=== PATIENT | male | born 1935 | race Caucasian/White ===

== ENCOUNTER 2016-06-05 22:36 | Emergency (ER) | payer MEDICARE, BC ==
[2016-06-05 22:47] VITALS: BP 187/86
--- NOTE | 2016-06-05 22:48 | EDM.PDOC ---
ED HPI ENT - General Chief Complaint: ENT Problem Stated Complaint: TOOTH PAIN Time Seen by Provider: 06/05/16 22:47 - History of Present Illness INITIAL COMMENTS - FREE TEXT/NARRATIVE: 80-year-old male presents emergency room with dental pain. This started this morning. Right upper rear tooth, has a filling in here done a couple years ago. The patient is scheduled to see his dentist tomorrow the patient tried Tylenol 2 extra strength around noon today. He is continuing to have pain. He denies fevers or chills or facial swelling. He is not having any swallowing difficulties. He's not aware of any drainage. - Related Data Allergies/ADRs: Allergies Allergy/AdvReac Type Severity Reaction Status Date / Time No Known Allergies Allergy Verified 06/05/16 22:48 ED ROS ENT - Review of Systems Review Of Systems: See Below Constitutional: Reports: no symptoms HEENT: Reports: Dental pain. Denies: Ear pain, Rhinitis, Sinus problem Respiratory: Reports: No Symptoms Cardiovascular: Reports: No symptoms GI/Abdominal: Reports: No symptoms Neurological: Reports: No Symptoms ED EXAM, ENT - Physical Exam Exam: See Below Exam Limited By: No limitations General Appearance: alert, no apparent distress Ears: normal external exam, normal canal, hearing grossly normal, normal TMs Nose: normal inspection, normal mucousa, no blood Mouth/Throat: Normal inspection, Normal lips, Normal oropharynx, Normal teeth, Other (It is right upper rear most tooth he has some developing erythema in the gumline with some subtle swelling. Nothing to drain at this point) Neck: normal inspection, supple, non-tender, full range of motion. No: lymphadenopathy (L), lymphadenopathy (R) Respiratory/Chest: lungs clear, normal breath sounds, no accessory muscle use Cardiovascular: regular rate, rhythm, no edema, no murmur Course - Vital Signs Last Recorded V/S: Last Vital Signs Temp 36.2 C 06/05/16 22:42 Pulse 75 06/05/16 22:42 Resp 20 06/05/16 22:42 BP 187/86 H 06/05/16 22:42 Pulse Ox 98 06/05/16 22:42 - Orders/Labs/Meds Meds: Medications Discontinued Medications Generic Name Dose Route Start Last Admin Trade Name Freq PRN Reason Stop Dose Admin Hydrocodone Bitart/Acetaminophen 1 tab 06/05/16 22:58 06/05/16 23:03 Irvona 325-5 Mg PO 06/05/16 22:59 1 tab ONETIME ONE Administration - Re-Assessments/Exams Free Text/Narrative Re-Assessment/Exam: 06/05/16 23:35 The patient was given a Irvona while back and he's doing a little better at this time, his blood pressure has come down. The patient would like to go home and try and get some rest. We'll discharge him on Irvona one or 2 every 6 hours #20 from the machine in the waiting room. Departure - Departure Time of Disposition: 23:36 Disposition: Home, Self-Care 01 Clinical Impression: Pain, dental Additional Instructions: Return to the emergency room with any questions or problems. Followup with your dentist as scheduled tomorrow. Use the Irvona one or 2 every 6 hours as needed for pain. Allow 12 hours after using this medication before driving or operating potentially hazardous equipment. If using this medication on a regular basis start a stool softener to prevent constipation. Keep track of your Tylenol intake. Try and limit it to 3000 mg in a 24-hour period each of the pain pills contained 325 mg.
[2016-06-05] MEDS ORDERED: Acetaminophen/HYDROcodone 325-5 MG Tab PO ONE (22:58)
== END 2016-06-05 23:48 | disposition home or self-care (01) ==
LOC: JD.ED 22:36
DX: K08.89 Other specified disorders of teeth and supporting structures (principal)
CPT/HCPCS: 99282; A9270; 99283

== ENCOUNTER 2018-05-04 07:59 | Day surgery (SDC) | payer MEDICARE, BC ==
--- NOTE | 2018-05-01 11:42 | PCM.PREANE ---
<Tyra Gutierrez - Last Filed: 05/01/18 11:40> Preanesthetic Assessment - Anesthesia/Transfusion/Family Hx Anesthesia History: Prior Anesthesia Without Reaction Family History of Anesthesia Reaction: No Transfusion History: No Prior Transfusion(s) Intubation History: Unknown - Review of Systems Pulmonary: Cough Cardiovascular: No Symptoms (History of HTN/Benign prostatic hypertrophy) Other: Reports: Diabetes (pre-diabetic), Sinus Problem (sinusitis) - Physical Assessment NPO Status Date: 05/03/18 Height: 1.78 m ASA Class: 2 Mental Status: Alert & Oriented x3 - Lab Values: Labs reviewed and noted and within acceptable ranges to proceed with scheduled procedure. - Imaging/EKG Impressions: EKG: (2016) SR rate=66 - Allergies Allergies/Adverse Reactions: Allergies Allergy/AdvReac Type Severity Reaction Status Date / Time Dairy Products Allergy Other Verified 05/01/18 14:19 Milk Containing Products Allergy Other Verified 05/01/18 14:19 - Anesthesia Plan Pre-Op Medication Ordered: None - Acknowledgements Anesthesia Type Planned: MAC Pt an Appropriate Candidate for the Planned Anesthesia: Yes Alternatives and Risks of Anesthesia Discussed w Pt/Guardian: Yes Pt/Guardian Understands and Agrees with Anesthesia Plan: Yes PreAnesthesia Questionnaire Gastrointestinal History: Reports: Colon Polyp - Past Surgical History HEENT Surgical History: Reports: Naso-Sinus Surgery, Polypectomy - CURRENT (IN HOUSE) MEDS Current Meds: Current Medications Lactated Ringer's (Ringers, Lactated) 1,000 mls @ 125 mls/hr IV ASDIRECTED MARSHA Stop: 05/04/18 23:00 Last Admin: 05/04/18 08:20 Dose: 125 mls/hr Lidocaine/Sodium Bicarbonate (Buffered Lidocaine 1% In Ns 8.4%) 0.25 ml IDERM ONETIME PRN PRN Reason: Prior to IV Start Stop: 05/04/18 18:00 Last Admin: 05/04/18 08:19 Dose: 0.25 ml Sodium Chloride (Saline Flush) 10 ml FLUSH ASDIRECTED PRN PRN Reason: Keep Vein Open Stop: 05/04/18 18:00 Discontinued Medications Fentanyl (Sublimaze) Confirm Administered Dose 100 mcg .ROUTE .STK-MED ONE Stop: 05/04/18 06:54 Lidocaine HCl (Xylocaine-Mpf 1%) Confirm Administered Dose 6 mls @ as directed .ROUTE .STK-MED ONE Stop: 05/04/18 06:54 Ondansetron HCl (Zofran) Confirm Administered Dose 4 mg .ROUTE .STK-MED ONE Stop: 05/04/18 06:54 Propofol (Diprivan 20 Ml) Confirm Administered Dose 200 mg .ROUTE .STK-MED ONE Stop: 05/04/18 06:54 <Tereza Batista - Last Filed: 05/04/18 08:36> Preanesthetic Assessment - Anesthesia/Transfusion/Family Hx Anesthesia History: Prior Anesthesia Without Reaction Family History of Anesthesia Reaction: No Transfusion History: No Prior Transfusion(s) Intubation History: Unknown - Review of Systems General: No Symptoms Pulmonary: Cough (Chronic Sinusitis, nasal drainage triggers cough, has had sinus surgery with polyp removal. ) Cardiovascular: No Symptoms (History of HTN) Gastrointestinal: No Symptoms Neurological: No Symptoms Other: Reports: Diabetes, Sinus Problem - Physical Assessment NPO Status Time: 20:00 Pulse: 80 O2 Sat by Pulse Oximetry: 95 Respiratory Rate: 16 Blood Pressure: 166/85 Temperature: 36.2 C ASA Class: 2 Mental Status: Alert & Oriented x3 Airway Class: Mallampati = 2 Dentition: Reports: Normal Dentition Thyro-Mental Finger Breadths: 3 Mouth Opening Finger Breadths: 3 ROM/Head Extension: Full Lungs: Clear to Auscultation, Normal Respiratory Effort Cardiovascular: Regular Rate, Regular Rhythm - Anesthesia Plan Pre-Op Medication Ordered: None - Acknowledgements Anesthesia Type Planned: MAC Pt an Appropriate Candidate for the Planned Anesthesia: Yes Alternatives and Risks of Anesthesia Discussed w Pt/Guardian: Yes Pt/Guardian Understands and Agrees with Anesthesia Plan: Yes
[~2018-05-04 07:59] MED LIST: Lactated Ringers 1,000 ML IV SCH; Lidocaine 1% 6 ML ONE; Lidocaine 1%/Sod Bicarbonate in NS 8.4% 1 ML Syringe IDERM PRN; Ondansetron 4 MG/2 ML SDV ONE; Propofol 200 MG/20 ML SDV ONE; Sodium Chloride 0.9% 10 ML Syringe FLUSH PRN; fentaNYL 100 MCG/2 ML SDV ONE
[2018-05-04] MEDS ORDERED: Lidocaine 1% with EPINEPHrine 1:100,000 20 ML MDV ONE (08:41)
[2018-05-04] MEDS ORDERED: Ondansetron 4 MG/2 ML SDV IVPUSH PRN (09:48)
[2018-05-04] MEDS ORDERED: Bacitracin Oint 15 GM Tube ONE (10:27)
--- NOTE | 2018-05-04 11:12 | PCM.OPNOTE ---
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 Skin lesion from left face, excision 1.8cm x 3.5cm x 0.3cm 2. Skin lesion from left hand, excision 1.8cm x 4.8cm x 0.3cm Fluid Replacement, Intraop: 700 Output, Urine Amount: 0 EBL in mLs: 3 Complications: none apparent Condition: Good
--- NOTE | 2018-05-04 11:13 | PCM48HPAN ---
Post Anesthesia Note - EVALUATION WITHIN 48HRS OF ANESTHETIC Vital Signs in Normal Range: Yes Patient Participated in Evaluation: Yes Respiratory Function Stable: Yes Airway Patent: Yes Cardiovascular Function Stable: Yes Hydration Status Stable: Yes Pain Control Satisfactory: Yes Nausea and Vomiting Control Satisfactory: Yes Mental Status Recovered: Yes
--- NOTE | 2018-05-04 11:16 | PCM.PRNOTE ---
- Free Text/Narrative Note: Operative Report Date of surgery: May 04, 2018 Preoperative diagnosis: Lesions on the left face and left hand suspicious for malignancy Postoperative diagnosis: Squamous cell carcinoma of the left face and left hand Procedure: Excision of skin lesions from left face and left hand Surgeon: Dr. Elma Pop Anesthesia: MAC and local 1% lidocaine with epinephrine Custom Ski Maker: Tyra Gutierrez CRNA Estimated blood loss: 3 mL IV fluids: 700 mL Urine output: 0 mL Drains and lines: None Findings: . 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 Skin lesion from left face, excision 1.8cm x 3.5cm x 0.3cm 2. Skin lesion from left hand, excision 1.8cm x 4.8cm x 0.3cm Indication for the procedure: The patient is an 82-year-old gentleman who presented to my office complaining of skin lesions that had been present in the last few months. He reported the lesion on his left face appeared about 7 months ago and has been increasing in size rapidly. The lesion on his left hand has appeared about a year ago, but has been more stable in size and appearance. He desired excision of these lesions. We discussed risks of bleeding, infection, and poor cosmetic outcome. His written consent was obtained Description of the procedure: The patient presented to the outpatient holding area on the day of his procedure. His history and physical are verified his consent was present on the chart. He was taken back to the operating room and placed in supine position on the operating table. SCD boots were placed and functional prior to start of this procedure. No antibiotics were given as this was not indicated for the type of procedure. MAC anesthesia was induced successfully. A surgical timeout was performed. The patient was prepped and draped in standard surgical fashion. We began by using local anesthetic in the lesion on the left face. It was then measured and the lesion measured 1.6 cm and was circular. We then marked a skin ellipse and excised the lesion and surrounding skin, measuring 1.8 cm x 3.5 cm to a depth of 0.3 cm. This was marked and sent to pathology for frozen section and examination of the margins. Hemostasis was achieved using the Bovie device. We then turned our attention to the lesion on the hand. It measured 1 cm x 1 cm and was circular. We marked of appropriate 4 mm margins on either side of the lesion. Local anesthetic was infused in the area. A skin ellipse was then excised measuring 1.8 cm x 4.8 cm to a depth of 0.3cm. this was marked and sent to pathology for frozen section. Hemostasis was achieved using the Bovie device. The incision was then closed using interrupted 4-0 nylon sutures. Bacitracin and a dry dressing was applied. Pathology reported negative margins on frozen section. The fascial wound was then examined. The skin borders were then elevated using the Bovie device to raise small skin flaps. This was effective to bring the skin together without tension. The skin was then closed using interrupted 5-0 nylon sutures. Adaptic and a dry dressing was then applied. Patient tolerated the procedure well. All sponge, needle counts correct. The patient was transported to the PACU in stable condition. Elma Pop MD General Surgery
[2018-05-04 13:15] VITALS: BP 155/76
== END 2018-05-04 11:55 | disposition home or self-care (01) ==
LOC: JD.SDS 07:59
PROVIDERS: ATTEND Surgery
DX: C44.329 Squamous cell carcinoma of skin of other parts of face (principal); C44.629 Squamous cell carcinoma of skin of left upper limb, including shoulder; I10 Essential (primary) hypertension; N40.0 Benign prostatic hyperplasia without lower urinary tract symptoms; Z79.899 Other long term (current) drug therapy; Z91.011 Allergy to milk products
CPT/HCPCS: 11626; 11646; A9270; J2001; J2405; J2704; J3010; J7120

== ENCOUNTER 2019-12-01 16:33 | Emergency (ER) | payer MEDICARE, BC ==
[2019-12-01 17:02] VITALS: BP 161/82; PULSE 79
[2019-12-01] MEDS ORDERED: Lidocaine 2% Jelly 10 ML Urojet MUCMEM ONE (17:19)
--- NOTE | 2019-12-01 17:25 | EDM.PDOC ---
ED HPI GENERAL MEDICAL PROBLEM - General Chief Complaint: Genitourinary Problem Stated Complaint: UNABLE TO VOID Time Seen by Provider: 12/01/19 16:55 Source of Information: Reports: Patient, RN Notes Reviewed History Limitations: Reports: No Limitations - History of Present Illness INITIAL COMMENTS - FREE TEXT/NARRATIVE: Patient is an 84-year-old male who presents to the ED for the evaluation of his urinary issues. Patient notes that he voided this morning at around 1030, and everything was normal, he had no dysuria, frequency or urgency. He states that shortly prior to coming to the ER, he had the urge to void, went to the bathroom and could not pee. He notes this is never happened to him before. He states he does have prostate problems, but he is not taking any medications for this, he states that his urologist left, and he has not followed up with anyone since then. His primary care provider is Dr. Ashford. The bladder scan at time of triage does show over 321 mils in the patient's bladder. Patient is afebrile at 97.8 F, he is in no respiratory distress, and he has no major abdominal tenderness at this time. Lower Abdomen Pain Score (Numeric/FACES): 3 - Related Data Allergies Allergy/AdvReac Type Severity Reaction Status Date / Time Dairy Products Allergy Other Verified 05/01/18 14:19 Milk Containing Products Allergy Other Verified 05/01/18 14:19 Home Meds: Home Meds Lisinopril 20 mg PO DAILY 05/01/18 [History] Methylsulfonylmethane [MSM] 1,000 mg PO DAILY 05/01/18 [History] Tamsulosin [Tamsulosin 24 Hr] 0.4 mg PO DAILY #30 cap.er 12/01/19 [Rx] levoFLOXacin [Levaquin] 500 mg PO DAILY #7 tab 12/01/19 [Rx] Past Medical History HEENT History: Reports: Impaired Vision, Sinusitis, Other (See Below) Other HEENT History: Nasal polyps Cardiovascular History: Reports: Hypertension Gastrointestinal History: Reports: Colon Polyp Genitourinary History: Reports: BPH Oncologic (Cancer) History: Reports: Basal Cell Carcinoma Dermatologic History: Reports: Other (See Below) Other Dermatologic History: Basal cell carcinoma - Past Surgical History HEENT Surgical History: Reports: Naso-Sinus Surgery GI Surgical History: Reports: Colonoscopy Oncologic Surgical History: Reports: Other (See Below) Other Oncologic Surgeries/Procedures: Excision basal cell carcinoma Social & Family History - Tobacco Use Tobacco Use Status *Q: Never Tobacco User - Caffeine Use Caffeine Use: Reports: None - Recreational Drug Use Recreational Drug Use: No ED ROS GENERAL - Review of Systems Review Of Systems: Comprehensive ROS is negative, except as noted in HPI. ED EXAM, RENAL/ - Physical Exam Exam: See Below Exam Limited By: No Limitations General Appearance: Alert, WD/WN, No Apparent Distress Respiratory/Chest: No Respiratory Distress, Lungs Clear, Normal Breath Sounds, No Accessory Muscle Use, Chest Non-Tender Cardiovascular: Normal Peripheral Pulses, Regular Rate, Rhythm, No Murmur GI/Abdominal: Normal Bowel Sounds, Soft, No Distention, No Mass, Tender (slight suprapubic tenderness) (Male) Exam: Normal Inspection Rectal (Males) Exam: Deferred Extremities: Normal Inspection, Normal Capillary Refill Neurological: Alert, Oriented, Normal Cognition, No Motor/Sensory Deficits Psychiatric: Normal Affect, Normal Mood Skin Exam: Warm, Dry, Intact, Normal Color, No Rash Course - Vital Signs Last Recorded V/S: Last Vital Signs Temp 97.8 F 12/01/19 16:57 Pulse 79 12/01/19 16:57 Resp 20 12/01/19 16:57 BP 161/82 H 12/01/19 16:57 Pulse Ox 95 12/01/19 16:57 - Orders/Labs/Meds Orders: Active Orders 24 hr Category Date Time Status Bladder Scan [RC] ASDIRECTED Care 12/01/19 17:00 Ordered Cabello Catheter Insertion [Insert Urinary Catheter] [OM. Care 12/01/19 17:21 Ordered PC] DAILY Urinary Catheter Assessment [RC] ASDIRECTED Care 12/01/19 17:20 Ordered UA W/MICROSCOPIC [URIN] Stat Lab 12/01/19 17:10 Ordered Meds: Medications Discontinued Medications Generic Name Dose Route Start Last Admin Trade Name Freq PRN Reason Stop Dose Admin Lidocaine HCl 10 ml 12/01/19 17:19 12/01/19 17:27 Xylocaine 2% Jelly MUCMEM 12/01/19 17:20 10 ml ONETIME ONE Administration Lidocaine HCl Confirm 12/01/19 17:54 12/01/19 18:00 Xylocaine 2% Jelly Administered 12/01/19 17:55 10 ml Dose Administration 10 ml .ROUTE .[facility]-MED ONE - Re-Assessments/Exams Free Text/Narrative Re-Assessment/Exam: 12/01/19 17:24 Patient presents to the ED for his urinary retention. Will have a Cabello placed along with a urinalysis to be taken, and will have him follow-up with urology for further management. Departure - Departure Time of Disposition: 18:12 Disposition: Home, Self-Care 01 Condition: Good Clinical Impression: Urinary retention - Discharge Information *PRESCRIPTION DRUG MONITORING PROGRAM REVIEWED*: No *COPY OF PRESCRIPTION DRUG MONITORING REPORT IN PATIENT SACHIN: No Prescriptions: Tamsulosin [Tamsulosin 24 Hr] 0.4 mg PO DAILY #30 cap.er levoFLOXacin [Levaquin] 500 mg PO DAILY #7 tab Instructions: Acute Urinary Retention, Male, [id number] Referrals: Isidoro Hannon MD [Primary Care Provider] - Forms: ED Department Discharge Additional Instructions: You have been evaluated in the ED for your urinary symptoms. You have been given a prescription for Levaquin 500mg 1 tablet daily for 7 days. You were also started on Flomax as well to help shrink the prostate, as it is likely you have an enlarged prostate causing some of your issues. Please increase your oral fluid intake and try to stay adequately hydrated. You will need to follow-up with urologist of choice, please call [facility] in [place] to obtain an appointment with any urologist. You may also talk with your primary care provider, Dr. Ashford to line this up for you, please call his office tomorrow. Please return to the ED if your symptoms change or worsen. Sepsis Event Note (ED) - Evaluation Sepsis Screening Result: No Definite Risk - Focused Exam Vital Signs: Vital Signs Temp Pulse Resp BP Pulse Ox 12/01/19 16:57 97.8 F 79 20 161/82 H 95 - My Orders Last 24 Hours: My Active Orders 12/01/19 17:00 Bladder Scan [RC] ASDIRECTED 12/01/19 17:10 UA W/MICROSCOPIC [URIN] Stat 12/01/19 17:20 Urinary Catheter Assessment [RC] ASDIRECTED 12/01/19 17:21 Cabello Catheter Insertion [Insert Urinary Catheter] [OM.PC] DAILY - Assessment/Plan Last 24 Hours: My Active Orders 12/01/19 17:00 Bladder Scan [RC] ASDIRECTED 12/01/19 17:10 UA W/MICROSCOPIC [URIN] Stat 12/01/19 17:20 Urinary Catheter Assessment [RC] ASDIRECTED 12/01/19 17:21 Cabello Catheter Insertion [Insert Urinary Catheter] [OM.PC] DAILY
[2019-12-01] MEDS ORDERED: Lidocaine 2% Jelly 10 ML Urojet ONE (17:54)
== END 2019-12-01 18:25 | disposition home or self-care (01) ==
LOC: JD.ED 16:33
DX: N40.1 Benign prostatic hyperplasia with lower urinary tract symptoms (principal); R33.8 Other retention of urine; I10 Essential (primary) hypertension; Z79.899 Other long term (current) drug therapy; Z91.011 Allergy to milk products
CPT/HCPCS: 99283

== ENCOUNTER 2022-10-21 05:12 | Inpatient (IN) | payer MEDICARE, BC ==
[2022-10-21] MEDS ORDERED: Ondansetron 4 MG/2 ML SDV IVPUSH ONE (05:37)
[2022-10-21 05:44] LABS: BASOPHILS PERCENT AUTO 0.3 % (0.0-1.0); EOSINOPHILS ABSOLUTE AUTO 0.1 K/mm3 (0.0-0.4); EOSINOPHILS PERCENT AUTO 0.9 % (0.0-6.0); HEMATOCRIT 43.3 % (42.0-52.0); HEMOGLOBIN 15.2 gm/dl (14.0-18.0); IMMATURE GRAN ABSOLUTE AUTO 0.04 K/mm3 (0.00-0.05); IMMATURE GRAN PERCENT AUTO 0.5 % (0.0-0.4); LYMPHOCYTES PERCENT AUTO 12.4 % (24.0-44.0); MEAN CORPUSCULAR HGB CONC 35.1 g/dl (32.0-36.0); MEAN CORPUSCULAR VOLUME 88.2 fl (83.0-99.0); MEAN PLATELET VOLUME 9.9 fl (9.4-12.4); MONOCYTES ABSOLUTE AUTO 1.1 K/mm3 (0.0-0.8); MONOCYTES PERCENT AUTO 14.1 % (0.0-8.0); NEUTROPHILS ABSOLUTE AUTO 5.5 K/mm3 (1.8-7.7); NEUTROPHILS PERCENT AUTO 71.8 % (41.0-71.0); PLATELET COUNT,PLT 221 K/mm3 (150-400); RED BLOOD CELL COUNT 4.91 M/mm3 (4.52-5.90); WHITE BLOOD CELL COUNT,WBC 7.67 K/mm3 (3.9-11.3)
[2022-10-21] MEDS: Sodium Chloride 0.9% 10 ML Syringe FLUSH PRN ×2 (05:50→06:12)
[2022-10-21] MEDS: Sodium Chloride 0.9% 1,000 ML IV SCH ×2 (05:53→17:14)
[2022-10-21 06:08] LABS: A/G RATIO 1.1 (1-2); ALBUMIN 3.8 g/dl (3.4-5.0); ALKALINE PHOSPHATASE 72 U/L (46-116); ASPARTATE AMNIOTRANSFERASE,AST 18 U/L (15-37); BILIRUBIN TOTAL 0.9 mg/dL (0.2-1.0); BLOOD UREA NITROGEN,BUN 22 mg/dL (7-18); BUN/CREATININE RATIO 18.3 (14-18); CALCIUM 8.5 mg/dL (8.5-10.1); CARBON DIOXIDE,CO2 25 mEq/L (21-32); CHLORIDE,CL 96 mEq/L (98-107); CREATININE 1.2 mg/dL (0.7-1.3); EST CRCL DRUG DOSING (CG) 43.95 mL/min; ESTIMATED GFR 59 mL/min (>60); GLUCOSE RANDOM 166 mg/dL (70-99); LIPASE 31 U/L (73-393); PROTEIN TOTAL,TP 7.4 g/dl (6.4-8.2); SODIUM,NA 131 mEq/L (136-145)
[2022-10-21 06:09] LABS: TROPONIN I HIGH SENSITIVITY < 4 pg/mL (<=76)
[2022-10-21] MEDS ORDERED: Sodium Chloride 0.9% 10 ML Syringe FLUSH ONE (06:10)
[2022-10-21] MEDS ORDERED: Iopamidol 612 MG/ML 100 ML Bottle IVPUSH ONE (06:10)
[2022-10-21 06:16] LABS: ALANINE AMINOTRANSFERASE,ALT 15 U/L (16-63)
[2022-10-21 08:15] LABS: APPEARANCE,URINE CLEAR (Clear); BILIRUBIN,URINE NEGATIVE (Negative); COLOR,URINE YELLOW (Yellow); GLUCOSE,URINE NEGATIVE (Negative); KETONES,URINE NEGATIVE (Negative); LEUKOCYTE ESTERASE,URINE NEGATIVE (Negative); NITRITE,URINE NEGATIVE (Negative); OCCULT BLOOD,URINE NEGATIVE (Negative); PROTEIN,URINE NEGATIVE (Negative)
[2022-10-21 08:44] LABS: RBC,URINE 0-5 /hpf (0-5); SQUAMOUS EPITHELIAL CELLS,UR 0-5 /hpf (0-5); WBC,URINE 0-5 /hpf (0-5)
[2022-10-21 08:45] LABS: BACTERIA,URINE RARE /hpf (FEW); HYALINE CASTS,URINE 0-5 /lpf (0-5); MUCUS,URINE RARE /hpf (FEW)
[2022-10-21] MEDS ORDERED: fentaNYL 100 MCG/2 ML SDV ONE ×3 (12:50→15:26)
[2022-10-21] MEDS ORDERED: Propofol 200 MG/20 ML SDV ONE (12:50)
[2022-10-21] MEDS ORDERED: Succinylcholine 200 MG/10 ML MDV ONE (12:51)
[2022-10-21] MEDS ORDERED: Lidocaine 1% 5 ML VIAL ONE (12:53)
[2022-10-21] MEDS ORDERED: Rocuronium 50 MG/5 ML Vial ONE (12:53)
[2022-10-21] MEDS ORDERED: Sodium Chloride 0.9% 100 ML ONE (12:57)
[2022-10-21] MEDS ORDERED: Phenylephrine 1% 10 MG/ML SDV ONE (12:57)
[2022-10-21] MEDS ORDERED: Albuterol 0.083% 2.5 MG/3 ML Neb Soln NEB SCH (12:58)
[2022-10-21] MEDS ORDERED: Bupivacaine 0.5%/EPINEPHrine 1:200,000 50 ML MDV ONE (13:19)
[2022-10-21] MEDS ORDERED: Lidocaine 1% 30 ML SDV ONE (13:19)
[2022-10-21] MEDS ORDERED: ceFAZolin 2 GM Vial ONE (14:06)
[2022-10-21] MEDS ORDERED: metroNIDAZOLE/Normal Saline 100 ML ONE (14:17)
[2022-10-21] MEDS ORDERED: HYDROmorphone 0.5 MG/0.5 ML Syringe ONE (14:35)
[2022-10-21] MEDS ORDERED: Ondansetron 4 MG/2 ML SDV ONE (14:57)
[2022-10-21] MEDS ORDERED: Metoprolol Tartrate 5 MG/5 ML SDV ONE (15:05)
[2022-10-21] MEDS ORDERED: Lactated Ringers 1,000 ML ONE (15:23)
[2022-10-21] MEDS ORDERED: Ondansetron 4 MG/2 ML SDV IVPUSH PRN ×2 (15:32→17:05)
[2022-10-21] MEDS ORDERED: fentaNYL 100 MCG/2 ML SDV IVPUSH PRN (15:32)
[2022-10-21] MEDS ORDERED: HYDROmorphone 0.5 MG/0.5 ML Syringe IVPUSH PRN (15:32)
[2022-10-21] MEDS ORDERED: Neostigmine Methylsulfate 10 MG/10 ML MDV ONE (15:35)
[2022-10-21] MEDS ORDERED: Acetaminophen 325 MG Tab PO PRN (17:05)
[2022-10-21] MEDS: Heparin Sodium 5,000 Units/ML Vial SUBCUT SCH (17:35)
[2022-10-21] MEDS: Acetaminophen/HYDROcodone 325-5 MG Tab PO PRN (19:14)
[2022-10-21] MEDS: Formoterol/Mometasone 100-5 MCG 8.8 GM Inhaler IH SCH (20:24)
[2022-10-21] MEDS: ceFAZolin 2 GM in Sodium Chloride 0.9% 50 ML IV SCH (21:13)
[2022-10-21] MEDS: Morphine 2 MG/ML SYRINGE IVPUSH PRN (21:19)
[2022-10-21] MEDS: metroNIDAZOLE/Normal Saline 500 MG in Premix Bag 1 BAG IV SCH (21:54)
[2022-10-22] MEDS: Morphine 2 MG/ML SYRINGE IVPUSH PRN ×3 (03:42→14:43)
[2022-10-22] MEDS: Heparin Sodium 5,000 Units/ML Vial SUBCUT SCH ×2 (05:43→17:33)
[2022-10-22] MEDS: ceFAZolin 2 GM in Sodium Chloride 0.9% 50 ML IV SCH (05:43)
[2022-10-22] MEDS: metroNIDAZOLE/Normal Saline 500 MG in Premix Bag 1 BAG IV SCH (06:41)
[2022-10-22] MEDS: Albuterol 6.7 GM Inhaler INH PRN (08:56)
[2022-10-22] MEDS: Formoterol/Mometasone 100-5 MCG 8.8 GM Inhaler IH SCH ×2 (08:56→20:17)
[2022-10-22] MEDS: Sodium Chloride 0.9% 1,000 ML IV SCH (10:43)
[2022-10-22] MEDS ORDERED: Albuterol/Ipratropium 3.0-0.5 MG/3 ML Neb Soln ONE (15:06)
[2022-10-22] MEDS: Albuterol/Ipratropium 3.0-0.5 MG/3 ML Neb Soln NEB PRN (15:10)
[2022-10-23] MEDS: Morphine 2 MG/ML SYRINGE IVPUSH PRN ×2 (03:40→06:05)
[2022-10-23] MEDS: Heparin Sodium 5,000 Units/ML Vial SUBCUT SCH ×2 (06:00→16:39)
[2022-10-23 06:10] LABS: HEMATOCRIT 33.6 % (42.0-52.0); MEAN CORPUSCULAR HEMOGLOBIN 31.1 pg (28.0-32.0); MEAN CORPUSCULAR HGB CONC 34.5 g/dl (32.0-36.0); MEAN CORPUSCULAR VOLUME 90.1 fl (83.0-99.0); MEAN PLATELET VOLUME 10.1 fl (9.4-12.4); PLATELET COUNT,PLT 166 K/mm3 (150-400); RED BLOOD CELL COUNT 3.73 M/mm3 (4.52-5.90); WHITE BLOOD CELL COUNT,WBC 3.31 K/mm3 (3.9-11.3)
[2022-10-23 06:15] LABS: HEMOGLOBIN 11.6 gm/dl (14.0-18.0)
[2022-10-23 06:26] LABS: ANION GAP 10.7 (5-15); CALCIUM 7.9 mg/dL (8.5-10.1); EST CRCL DRUG DOSING (CG) 52.7 mL/min; POTASSIUM,K 3.7 mEq/L (3.5-5.1)
[2022-10-23] MEDS: Sodium Chloride 0.9% 1,000 ML IV SCH (06:47)
[2022-10-23] MEDS: Formoterol/Mometasone 100-5 MCG 8.8 GM Inhaler IH SCH ×2 (08:24→20:41)
[2022-10-23] MEDS: Acetaminophen/HYDROcodone 325-5 MG Tab PO PRN (15:59)
[2022-10-24] MEDS: Sodium Chloride 0.9% 1,000 ML IV SCH (02:58)
[2022-10-24] MEDS: Acetaminophen/HYDROcodone 325-5 MG Tab PO PRN ×2 (03:10→13:11)
[2022-10-24 07:32] LABS: HEMATOCRIT 36.7 % (42.0-52.0); HEMOGLOBIN 12.5 gm/dl (14.0-18.0); MEAN CORPUSCULAR HEMOGLOBIN 31.2 pg (28.0-32.0); MEAN CORPUSCULAR HGB CONC 34.1 g/dl (32.0-36.0); MEAN CORPUSCULAR VOLUME 91.5 fl (83.0-99.0); MEAN PLATELET VOLUME 9.6 fl (9.4-12.4); PLATELET COUNT,PLT 229 K/mm3 (150-400); RED BLOOD CELL COUNT 4.01 M/mm3 (4.52-5.90); WHITE BLOOD CELL COUNT,WBC 4.43 K/mm3 (3.9-11.3)
[2022-10-24] MEDS: Formoterol/Mometasone 100-5 MCG 8.8 GM Inhaler IH SCH ×2 (08:15→21:12)
[2022-10-24] MEDS: Docusate Sodium 100 MG Cap PO SCH ×2 (08:45→21:18)
[2022-10-24] MEDS: Heparin Sodium 5,000 Units/ML Vial SUBCUT SCH ×2 (08:46→16:33)
[2022-10-24] MEDS: guaiFENesin 600 MG Tab.ER PO SCH ×2 (11:24→21:17)
[2022-10-24] MEDS: Albuterol/Ipratropium 3.0-0.5 MG/3 ML Neb Soln NEB PRN (13:14)
[2022-10-24] MEDS: Albuterol 6.7 GM Inhaler INH PRN (21:12)
[2022-10-25] MEDS: Sodium Chloride 0.9% 1,000 ML IV SCH (02:15)
[2022-10-25] MEDS: Heparin Sodium 5,000 Units/ML Vial SUBCUT SCH ×2 (05:49→16:48)
[2022-10-25 06:35] LABS: ANION GAP 10.5 (5-15); BUN/CREATININE RATIO 14.4 (14-18); CALCIUM 7.6 mg/dL (8.5-10.1); CREATININE 0.9 mg/dL (0.7-1.3); EST CRCL DRUG DOSING (CG) 59.29 mL/min; MAGNESIUM 1.8 mg/dL (1.8-2.4); POTASSIUM,K 3.5 mEq/L (3.5-5.1)
[2022-10-25] MEDS: guaiFENesin 600 MG Tab.ER PO SCH ×2 (08:09→20:04)
[2022-10-25] MEDS: Docusate Sodium 100 MG Cap PO SCH ×2 (08:09→20:04)
[2022-10-25] MEDS: D5 1/2 NS w/ 20 mEq/L KCl 1,000 ML IV SCH ×2 (09:15→23:41)
[2022-10-25] MEDS: Bisacodyl 5 MG Tab PO SCH (09:17)
[2022-10-25] MEDS: Formoterol/Mometasone 100-5 MCG 8.8 GM Inhaler IH SCH ×2 (09:41→20:23)
[2022-10-25] MEDS: Albuterol 6.7 GM Inhaler INH PRN (20:23)
[2022-10-26 05:50] LABS: HEMATOCRIT 32.9 % (42.0-52.0); HEMOGLOBIN 11.3 gm/dl (14.0-18.0); MEAN CORPUSCULAR HEMOGLOBIN 30.5 pg (28.0-32.0); MEAN CORPUSCULAR HGB CONC 34.3 g/dl (32.0-36.0); MEAN CORPUSCULAR VOLUME 88.9 fl (83.0-99.0); MEAN PLATELET VOLUME 9.7 fl (9.4-12.4); PLATELET COUNT,PLT 215 K/mm3 (150-400); WHITE BLOOD CELL COUNT,WBC 5.03 K/mm3 (3.9-11.3)
[2022-10-26] MEDS: Heparin Sodium 5,000 Units/ML Vial SUBCUT SCH ×2 (06:13→17:33)
[2022-10-26] MEDS: Docusate Sodium 100 MG Cap PO SCH ×2 (08:35→20:12)
[2022-10-26] MEDS: Bisacodyl 5 MG Tab PO SCH (08:35)
[2022-10-26] MEDS: guaiFENesin 600 MG Tab.ER PO SCH ×2 (08:36→20:12)
[2022-10-26] MEDS: Formoterol/Mometasone 100-5 MCG 8.8 GM Inhaler IH SCH ×2 (09:52→21:06)
[2022-10-26] MEDS: Albuterol 6.7 GM Inhaler INH PRN (21:06)
[2022-10-26] MEDS: D5 1/2 NS w/ 20 mEq/L KCl 1,000 ML IV SCH (22:00)
[2022-10-27] MEDS: Heparin Sodium 5,000 Units/ML Vial SUBCUT SCH ×2 (05:30→17:03)
[2022-10-27] MEDS: Formoterol/Mometasone 100-5 MCG 8.8 GM Inhaler IH SCH ×2 (08:27→20:41)
[2022-10-27] MEDS: Bisacodyl 5 MG Tab PO SCH (08:34)
[2022-10-27] MEDS: guaiFENesin 600 MG Tab.ER PO SCH ×2 (08:34→20:00)
[2022-10-27] MEDS: Docusate Sodium 100 MG Cap PO SCH ×2 (08:35→20:00)
[2022-10-27] MEDS: Polyethylene Glycol 3350 Powder 17 GM Packet PO SCH ×2 (10:36→20:00)
[2022-10-27] MEDS: D5 1/2 NS w/ 20 mEq/L KCl 1,000 ML IV SCH (14:48)
[2022-10-27] MEDS: Albuterol 6.7 GM Inhaler INH PRN (20:41)
[2022-10-28 05:39] LABS: HEMATOCRIT 33.5 % (42.0-52.0); HEMOGLOBIN 11.7 gm/dl (14.0-18.0); MEAN CORPUSCULAR HEMOGLOBIN 31.4 pg (28.0-32.0); MEAN CORPUSCULAR HGB CONC 34.9 g/dl (32.0-36.0); MEAN CORPUSCULAR VOLUME 89.8 fl (83.0-99.0); MEAN PLATELET VOLUME 9.4 fl (9.4-12.4); PLATELET COUNT,PLT 251 K/mm3 (150-400); RED BLOOD CELL COUNT 3.73 M/mm3 (4.52-5.90); WHITE BLOOD CELL COUNT,WBC 7.05 K/mm3 (3.9-11.3)
[2022-10-28] MEDS: Heparin Sodium 5,000 Units/ML Vial SUBCUT SCH ×2 (05:45→18:14)
[2022-10-28] MEDS: D5 1/2 NS w/ 20 mEq/L KCl 1,000 ML IV SCH (05:46)
[2022-10-28 05:48] LABS: ANION GAP 11.9 (5-15); CALCIUM 8.1 mg/dL (8.5-10.1); EST CRCL DRUG DOSING (CG) 52.6 mL/min; POTASSIUM,K 3.9 mEq/L (3.5-5.1)
[2022-10-28] MEDS: Albuterol 6.7 GM Inhaler INH PRN ×2 (08:35→20:17)
[2022-10-28] MEDS: Formoterol/Mometasone 100-5 MCG 8.8 GM Inhaler IH SCH ×2 (08:35→20:17)
[2022-10-28] MEDS: Bisacodyl 5 MG Tab PO SCH (09:04)
[2022-10-28] MEDS: guaiFENesin 600 MG Tab.ER PO SCH ×2 (09:04→20:49)
[2022-10-28] MEDS: Polyethylene Glycol 3350 Powder 17 GM Packet PO SCH ×2 (09:04→20:49)
[2022-10-28] MEDS: Docusate Sodium 100 MG Cap PO SCH ×2 (09:04→20:48)
[2022-10-28] MEDS: Sennosides 8.6 MG Tab PO SCH ×2 (15:10→20:49)
[2022-10-29] MEDS: D5 1/2 NS w/ 20 mEq/L KCl 1,000 ML IV SCH (00:11)
[2022-10-29] MEDS: Heparin Sodium 5,000 Units/ML Vial SUBCUT SCH (06:32)
[2022-10-29 07:47] LABS: A/G RATIO 0.8 (1-2); ALBUMIN 2.6 g/dl (3.4-5.0); ANION GAP 13.3 (5-15); BILIRUBIN TOTAL 0.4 mg/dL (0.2-1.0); BUN/CREATININE RATIO 7.3 (14-18); CALCIUM 8.3 mg/dL (8.5-10.1); CREATININE 1.1 mg/dL (0.7-1.3); EST CRCL DRUG DOSING (CG) 46.59 mL/min; POTASSIUM,K 4.3 mEq/L (3.5-5.1); PROTEIN TOTAL,TP 5.8 g/dl (6.4-8.2)
[2022-10-29] MEDS ORDERED: Dextrose 5%-0.45% NaCl 1,000 ML IV SCH (08:45)
[2022-10-29] MEDS: Formoterol/Mometasone 100-5 MCG 8.8 GM Inhaler IH SCH (08:46)
[2022-10-29] MEDS: Albuterol 6.7 GM Inhaler INH PRN (08:47)
[2022-10-29] MEDS: Polyethylene Glycol 3350 Powder 17 GM Packet PO SCH (09:07)
[2022-10-29] MEDS: guaiFENesin 600 MG Tab.ER PO SCH (09:10)
[2022-10-29] MEDS: Sennosides 8.6 MG Tab PO SCH (09:10)
[2022-10-29] MEDS: Bisacodyl 5 MG Tab PO SCH (09:10)
[2022-10-29] MEDS: Docusate Sodium 100 MG Cap PO SCH (09:10)
[2022-10-29 10:36] VITALS: BP 166/82; PULSE 73
== END 2022-10-29 10:35 | disposition home or self-care (01) | DRG 330 ==
LOC: JD.ED 05:12 → JD.SDS 11:41 → JD.MS 17:04
PROVIDERS: ADMIT Surgery; ATTEND Surgery
PROC: 0DTF0ZZ Resection of Right Large Intestine, Open Approach (ICD-10-PCS; principal; 2022-10-21)
PROC: 0DBU0ZZ Excision of Omentum, Open Approach (ICD-10-PCS; principal; 2022-10-21)
PROC: 07BD0ZX Excision of Aortic Lymphatic, Open Approach, Diagnostic (ICD-10-PCS; principal; 2022-10-21)
PROC: 0T9B70Z Drainage of Bladder with Drainage Device, Via Natural or Artificial Opening (ICD-10-PCS; 2022-10-21)
DX: C18.2 Malignant neoplasm of ascending colon (principal); E87.1 Hypo-osmolality and hyponatremia; J98.11 Atelectasis; K56.609 Unspecified intestinal obstruction, unspecified as to partial versus complete obstruction; K56.7 Ileus, unspecified; K91.89 Other postprocedural complications and disorders of digestive system; R13.10 Dysphagia, unspecified; J84.10 Pulmonary fibrosis, unspecified; H91.90 Unspecified hearing loss, unspecified ear; I10 Essential (primary) hypertension; N40.0 Benign prostatic hyperplasia without lower urinary tract symptoms; Z91.011 Allergy to milk products; Z20.822 Contact with and (suspected) exposure to COVID-19; Z98.890 Other specified postprocedural states; Z85.828 Personal history of other malignant neoplasm of skin; Z90.49 Acquired absence of other specified parts of digestive tract; Z79.899 Other long term (current) drug therapy; Z99.81 Dependence on supplemental oxygen; Z86.010 Personal history of colon polyps
CPT/HCPCS: 00790; 36415; 71045; 71045-26; 71046; 71046-26; 74177; 74177-26; 80048; 80053; 81001; 82947; 83690; 83735; 83880; 84484; 85025; 85027; 86140; 88309; 88341; 88342; 92610-GN; 93005; 93010; 94640; 94667; 94668; 94761; 94762; 96361; 96374; 97116-GP; 97161-GP; 97530-GP; 99100; 99140; 99285; 99285-25; A9270-GY; J0330; J0690; J1170; J1644; J2270; J2370; J2405; J2704; J2710; J3010; J3480; J3490; J7030; J7042; J7120; J7620-GY; Q9967; U0002